=== PATIENT | male | born 1965 | race Caucasian/White ===

== ENCOUNTER 2016-06-10 04:57 | Emergency (ER) | payer OTHER ==
[~2016-06-10] VITALS: Ht 172.7 cm; Wt 117.9 kg
--- NOTE | 2016-06-10 05:37 | ED CARDIAC/CP/PALPITATIONS ---
History of Present Illness General Chief Complaint: Chest Pain Stated Complaint: CP Source: patient Exam Limitations: no limitations Vital Signs & Intake/Output Vital Signs & Intake/Output Vital Signs Date Time Temp Pulse Resp B/P Pulse O2 O2 Flow FiO2 Ox Delivery Rate 06/10 0520 99 Room Air 06/10 0510 96.8 92 18 176/102 99 Room Air Allergies Coded Allergies: NO KNOWN ALLERGIES (NKDA) (09/21/10) Triage Note: PT FROM HOME C/O CP. PT STATES THAT AROUND 0400 PT TOOK A CLINDAMYCIN AND FELT A BURNING SENSATION IN HIS CHEST POST TAKING THE CLINDAMYCIN. PT STATES " I HAVE A HX OF BAD ACID REFLUX AND IT FEELS LIKE THAT AFTER I TOOK THE ANTIBIOTIC. PT STATES THE BURNING SENSATION IS INTERMITTENT SO I DIDNT WANT TO CHANCE ANYTHING BAD WITH MY HEART SO IF IT IS JUST REFLUX THAT WOULD BE GOOD" DR CONTRERAS IN FOR EVAL Triage Nurses Notes Reviewed? yes HPI: Patient presents for evaluation of a burning chest pain that began abruptly shortly before arrival. Patient states that he arose at about 4:00 this morning to walk the dog and to take his morning medications. He took tramadol meloxicam and clindamycin. He then began to feel a severe burning substernal chest pain. He tried milk and Tums without improvement. He denies any associated diaphoresis or radiation of the pain. He states that although the pain is similar in feel and location to prior acid reflux pain, he has never had pain this severe. Past History Travel History Traveled to [place] past 21 day No Medical History Any Pertinent Medical History? see below for history Cardiovascular: hypertension, RIGHT BUNDLE BLOCK Renal: ACID REFLUX Tetanus Vaccine: Surgical History Surgical History: non-contributory Psychosocial History What is your primary language Czech Tobacco Use: Never used ETOH Use: denies use Illicit Drug Use: denies illicit drug use Family History Hx Contributory? No Review of Systems Review of Systems Constitutional: Reports: no symptoms. EENTM: Reports: no symptoms. Respiratory: Reports: no symptoms. Cardiovascular: Reports: see HPI. GI: Reports: no symptoms. Genitourinary: Reports: no symptoms. Musculoskeletal: Reports: no symptoms. Skin: Reports: no symptoms. Neurological/Psychological: Reports: no symptoms. Hematologic/Endocrine: Reports: no symptoms. Immunologic/Allergic: Reports: no symptoms. All Other Systems: Reviewed and Negative Physical Exam Physical Exam Cardiovascular: see below Comments: Gen.: Well-nourished, well-developed, no acute respiratory distress. Head: Normocephalic, atraumatic. Eyes: Normal inspection bilaterally Ears: Normal inspection bilaterally Nose: Normal inspection Throat/mouth : Moist mucosa Neck: Supple, full range of motion, no goiter Heart: Regular rate and rhythm, no murmurs rubs or gallops Lungs: Clear to auscultation bilaterally with normal air entry Chest: Nontender Back: Normal range of motion Abdomen: Soft, nontender, nondistended, normal bowel sounds Extremities: Normal range of motion grossly, equal radial pulses, no cyanosis clubbing or edema Neurologic: Cranial nerves grossly intact, speech is clear Skin: warm and dry Psychiatric: Calm, cooperative, no apparent delusions or hallucinations Core Measures ACS in differential dx? Yes Severe Sepsis Present: No Septic Shock Present: No Progress Differential Diagnosis: AMI, PUD/GERD, unstable angina Plan of Care: Orders Procedure Date/time Status Telemetry/Accordion Repairer 06/10 535 Active TROPONIN LEVEL 06/10 535 Complete MAGNESIUM 06/10 535 Complete CBC WITHOUT DIFFERENTIAL 06/10 535 Complete BASIC METABOLIC PANEL 06/10 535 Complete EKG 06/10 0459 Active Laboratory Tests 06/10/16 0600: Anion Gap 15, Estimated GFR > 60, BUN/Creatinine Ratio 20.0, Glucose 134 H, Calcium 9.5, Magnesium 1.7, Troponin I < 0.01, CBC w Diff NO MAN DIFF REQ, RBC 5.18, MCV 78.0 L, MCH 26.6 L, RDW 15.0 H, MPV 7.7, Gran % 53.4, Lymphocytes % 31.5, Monocytes % 7.5, Eosinophils % 6.9 H, Basophils % 0.7, Absolute Granulocytes 3.4, Absolute Lymphocytes 2.0, Absolute Monocytes 0.5, Absolute Eosinophils 0.4, Absolute Basophils 0, PUBS MCHC 34.1 Initial ED EKG: NSR, RBBB Prior EKG: unchanged Comments: Patient states that he had a stress test on a treadmill 2 months ago that was normal. He states he also had his aorta evaluated which was also normal. 06/10/2016 6:09:07 AM patient is feeling better. 06/10/2016 7:06:15 AM I have updated Jeffrey on his test results. He is pain free and wishes to go home. He has declined repeat EKG and troponin. I have discussed with him that his recent normal stress test is reassuring but not perfect. He is convinced that this is his acid reflux and again declined a repeat EKG and troponin. We did discuss a regimen of diet and exercise with the supervision of his physician. Departure Departure Disposition: HOME OR SELF CARE Condition: Stable Clinical Impression Primary Impression: Chest pain Qualifiers: Chest pain type: unspecified Qualified Code: R07.9 - Chest pain, unspecified Referrals: BIRDIE WEBSTER,RINA Freeman (PCP/Family) Additional Instructions: Smaller more frequent meals. Avoid lying flat after eating. Avoid spicy and highly acidic foods such as tomato sauce and orange juice. Follow-up with your primary care doctor this week. Take your medications with food to avoid possibly aggravating your stomach. Return if any concerns or sudden worsening. Thank you for choosing the [facility] for your care. It was a pleasure to serve you today. Geremias Contreras M.D. [facility] Departure Forms: Customer Survey General Discharge Information Critical Care Note Critical Care Note Critical Care Time: non-applicable
[2016-06-10 06:15] LABS: ABSOLUTE BASOPHIL COUNT 0 /CUMM (0.0-0.2); ABSOLUTE EOSINOPHIL COUNT 0.4 /CUMM (0.0-0.7); ABSOLUTE GRANULOCYTE CT 3.4 /CUMM (1.4-6.5); ABSOLUTE MONOCYTE COUNT 0.5 /CUMM (0.10-0.60); BASOPHIL % 0.7 % (0.0-2.0); EOSINOPHIL % 6.9 % (0-5); GRANULOCYTE % 53.4 % (42.2-75.2); HEMATOCRIT 40.4 % (42-52); MEAN CORPUSCULAR HGB 26.6 PG (27.0-31.0); MEAN CORPUSCULAR HGB CONC 34.1 G/DL (33.0-37.0); MEAN PLATELET VOLUME 7.7 FL (7.4-10.4); PLATELET COUNT 262 /CUMM (130-400); RED BLOOD CELL CT 5.18 /CUMM (4.70-6.10); WHITE BLOOD CELL COUNT 6.4 /CUMM (4.8-10.8)
[2016-06-10 07:08] VITALS: BP 150/90
== END 2016-06-10 07:15 ==
LOC: ERH 04:57
PROVIDERS: Emergency Medicine
DX: R07.9 Chest pain, unspecified (principal)
CPT/HCPCS: 93005; 93010